=== PATIENT | male | born 1965 | race Caucasian/White ===

== ENCOUNTER → 2021-07-20 | Outpatient (CLI) | payer BC ==
[~2021-07-20] MED LIST: CYCL10TA19 PO; DEXAMETHASONE PRES.FREE 10 MG/ML VIAL. ONE; DICL75TA PO; IBUP-1060 PO; IOHEXOL 180 MG/ML 10 ML VIAL. ONE
--- NOTE | 2021-07-20 12:52 | PDOC1 ---
INITIAL PAIN CONSULT DATE OF SERVICE: DOS: DATE: 07/20/21 TIME: 12:46 CHIEF COMPLAINT: Chief Complaint: Low back and left lower extremity pain HISTORY OF PRESENT ILLNESS: 55-year-old male presents history of pain low back left lower extremity for about 6 months after he sneezed while he was at home and has significant pain in the low back and radiating to his left lower extremity now rating the posterior gluteus posterior thigh posterior calf into the foot and all the toes on the left side patient reports its not the result of any other specific injury or accident that he is aware of is getting worse with time walking standing changing positions exacerbates the pain better with sitting or laying down but does awaken her from sleep on occasion most nights he sleeps fairly well patient reports it generally does not affect his bowel or bladder control but does affect his go to walk is not use any assistive devices however ambulate patient reports he has had physical therapy in the past also does exercises at various times still staying as active as possible stretching strengthening doing heat applications none of which is decrease the pain significantly patient is been chairing diclofenac he tried prednisone pack as well as cyclobenzaprine none of which have decreased the pain is well patient rates disability rating 0-10 10 being the worst, at 10 with family home responsibilities and recreational activities 0 in other categories. Patient reports no loss of motor function but significant fatigability of the left lower extremity with ambulation walking standing and changing positions. Patient rates his pain as a 4 to scale 10 at its worst for an average 0 its least is a 4 today. PAST MEDICAL HISTORY: PMH: Hearing loss PREVIOUS SURGERIES: Past Surgical Hx: Repair right biceps tendon 2019 CURRENT MEDICATIONS: Current Meds: See chart FAMILY HISTORY: Family Hx: Cancers SOCIAL HISTORY: Social Hx: Patient takes alcohol about once a month, uses vapor cigarettes, is lives with his spouse lives locally in [facility] REVIEW OF SYSTEMS: ROS: Positive for those items mentioned in history of present illness, all systems are reviewed, otherwise negative ,and are complete full and well-documented on patient's chart. PHYSICAL EXAM: VS: Blood pressure is 138/92 pulse 90 respirations 18 temperature is 98.1 F height is 5 feet 6 inches weight is 184 pounds. PE: PHYSICAL EXAMINATION: GENERAL: The patient is awake, alert, oriented, appropriate, very pleasant in demeanor HEENT: Shows normocephalic, atraumatic. Extraocular movements are intact and symmetrical. Oral cavity: Mucous membranes moist and pink. Dentition is intact. NECK: Shows anterior throat supple without palpable lymphadenopathy noted. Swallow reflex symmetrical. CHEST: Shows normal on inspection. Breath sounds are clear bilaterally, no rales rhonchi or wheezes auscultated. HEART: Shows S1, S2 clear. No murmurs auscultated. ABDOMEN: Soft, nontender, nondistended. No palpable organomegaly is noted. No rebound or guarding demonstrated. BACK: Shows spine grossly in the midline. Normal-appearing cervical lordotic curvature. There is slightly increased thoracic kyphosis, some minor flattening of the lumbar lordotic curvature. Lumbar paraspinous muscles show symmetrical on inspection, on palpation shows some moderate tenderness diffusely throughout the upper, middle and lower distribution of the paraspinous muscles bilaterally and also into the lower thoracic paraspinous musculature, firm and tender, but without specific trigger points, without radiation of pain. The patient has good rotational motion of the lumbar spine, both laterally as well as extension and flexion without significant difficulty. No tenderness over the spinous processes, sacrum or sacroiliac regions. EXTREMITIES: Lower extremities show deep tendon reflexes 2+ in the patellar and tendo calcaneus tendons. Motor exam is 5 on a scale of 5 with right dorsiflexion, extension, quadriceps and hamstring flexion and 4/5 on the left. Peripheral pulses are 1 posterior tibial. No peripheral edema is noted bilaterally. Lower extremities are warm and dry to touch, equal in color and appearance. SKIN: Shows warm and dry, good turgor. No edema. No sores, rashes or bruising throughout. IMPRESSION: Impression: 55-year-old male with approximate 6-month history increasing pain low back left lower extremity radicular fashion following L5-S1 dermatomal distribution. Hearing loss Vapor cigarette use Plan: Options discussed with the patient including continued physical therapies interventional techniques as well as medication management. Patient like to pursue interventional techniques. We discussed a lumbar epidural steroid in jections description as well as anatomical models to describe the procedure. Risks were discussed including but not limited to: Bleeding, infection, possibility of epidural hematoma and subsequent neurological compromise, dural puncture, headaches, spinal cord and/or nerve damage, side effects of steroid medication, and poor results regarding pain control. Patient understands and wished to proceed. He will return to the clinic in approximately 2 weeks for follow-up, was counseled as to return appointment, activity level, and side effect to be aware of. Procedure is lumbar epidural steroid injection under local anesthetic using s terile prep and drape at the L5-S1 level using C-arm fluoroscopic guidance in both AP and lateral views medications injected is 20 mg dexamethasone +10mL preservative-free normal saline and 2 mL contrast- condition at discharge is stable patient tolerated procedure well had no complications. PATRICIA MCGRATH MD Jul 20, 2021 12:52
--- NOTE | 2021-07-20 12:53 | PDOC4 ---
Procedure Note: ICD 10 Code: ICD 10 Code: M54.17 M51.87 Procedure Note: Patient was consented for lumbar epidural steroid injection with fluoroscopic guidance. Risks were discussed including but not limited to: Bleeding, infection, possibility of epidural hematoma and subsequent neurological compromise, dural puncture, headaches, spinal cord and/or nerve damage, side effects of steroid medication, and poor results regarding pain control. Patient understands and wished to proceed. Procedure is lumbar epidural steroid injection under local anesthetic using sterile prep and drape at the L5-S1 level using C-arm fluoroscopic guidance in both AP and lateral views medications injected is 20 mg dexamethasone +10mL preservative-free normal saline and 2 mL contrast- condition at discharge is stable patient tolerated procedure well had no complications. PATRICIA MCGRATH MD Jul 20, 2021 12:53
== END | disposition home or self-care (01) ==
LOC: PNCL 09:53
PROVIDERS: ATTEND Anesthesiology
DX: M51.17 Intervertebral disc disorders with radiculopathy, lumbosacral region (principal); Z79.899 Other long term (current) drug therapy
CPT/HCPCS: 62323; J1100; Q9965

== ENCOUNTER → 2021-08-04 | Outpatient (CLI) | payer BC ==
[~2021-08-04] MED LIST changes: -DEXAMETHASONE PRES.FREE 10 MG/ML VIAL. ONE; -IOHEXOL 180 MG/ML 10 ML VIAL. ONE
--- NOTE | 2021-08-04 14:36 | PDOC ---
Progress Note - Pain Clinic Date of Service: DOS: DATE: 08/04/21 TIME: 14:34 Diagnosis: Dx: Lumbar radiculopathy with lumbar degenerative disc disease History or Present Illness: HPI: Telemedicine visit today with patient's identity verified with full name as well as full date of , total time spent 11 minutes, voice only 55-year-old male via telemedicine visit today with follow-up after lumbar epidural steroid injection July 20, 2021. Patient reports still significant pain in the low back and left lower extremity without any significant improvement patient reports increased fatigability and some weakness in the left leg as well over the last week or so patient reports still in the posterior gluteus posterior thigh posterior calf into the foot again worse with walking standing changing positions patient reports disturbing sleep and it is not improved significantly since his visit. Patient reports no bowel or bladder incontinence. We discussed options with the patient, and will order an MRI scan of the lumbar spine to better differentiate etiology for his left L5-S1 radiculopathy with increasing pain and weakness in the left leg. Patient will follow up as scheduled after MRI scan is completed. Physical Exam: PE: PATRICIA MCGRATH MD Aug 04, 2021 14:36
--- NOTE | 2021-08-04 15:10 | NUR ---
TELEHEALTH: Pt called to inquire about whether to schedule a follow up visit since his first lumbar epidural was ineffective and he continues to have worsening pain radiating down his left leg. Scheduled for a follow up evaluation with possible injection, and transferred to Dr. Puckett for further discussion of symptoms. N/O for MRI of lumbar spine. Prior authorization needed for MRI, request pending. Radiology Scheduling will call patient to schedule appointment.
== END | disposition home or self-care (01) ==
LOC: PNCL 13:45
PROVIDERS: ATTEND Anesthesiology
DX: M51.16 Intervertebral disc disorders with radiculopathy, lumbar region (principal); Z79.899 Other long term (current) drug therapy
CPT/HCPCS: 99212; G0463

== ENCOUNTER → 2021-08-11 | Outpatient (CLI) | payer BC ==
--- NOTE | 2021-08-11 09:53 | KCIC ---
EXAM: Lumbar spine MRI without contrast. HISTORY: Lumbosacral radiculopathy. TECHNIQUE: Multiplanar, multisequence magnetic resonance imaging of the lumbar spine was performed wi thout contrast. COMPARISON: None. FINDINGS: There is no significant listhesis. There is degenerative endplate remodeling and mild disc desiccation at multiple levels. There is disc space narrowing and Schmorl's node formation with assoc iated endplate signal changes at T11-T12. There is no suspicious osseous lesion. There is no acute or subacute fracture. The conus terminates at T12. 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 There is a T2 hyperintense lesion within the right posterior superior L5 vertebral body and pedicle, consistent with a benign atypical hemangioma. There is a 3.3 cm simple right renal cyst. Follow-up is not routinely performed for simple cysts. At T11-T12, there is a shallow left lateral recess to foraminal disc protrusion superimposed on endpl ate remodeling. There is mild narrowing of the left aspect of the central canal and left lateral rece ss. There is mild left foraminal stenosis. At T12-L1, there is no stenosis. At L1-L2, there is no stenosis. At L2-L3, there is a mild disc bulge and anterior predominant endplate remodeling. There is no stenos is. At L3-L4, there is a mild disc bulge and endplate remodeling. There is mild bilateral facet arthropat hy. There is no stenosis. At L4-L5, there is a left paracentral to lateral recess disc protrusion with 5 and minimal inferior e xtrusion superimposed on a disc bulge and endplate remodeling. There is mild bilateral facet arthropa thy. There is mild to moderate central canal stenosis and effacement of the left lateral recess with deviation of the traversing left L5 nerve root. At L5-S1, there is mild bilateral facet arthropathy. There is a suspected 9 mm left facet joint synov ial cyst along the lateral aspect of the facet joint. IMPRESSION: Multilevel degenerative change involving the lower thoracic and lumbar spine, described i n detail above. This is associated with mild left foraminal and central canal stenosis and narrowing of the left lateral recess at T12-L1 and mild to moderate central canal stenosis and effacement of th e left lateral recess with deviation of the traversing left L5 nerve root at L4-L5. Electronically signed by: Alisa De Los Santos MD (08/11/2021 9:50 AM) [id number]
== END | disposition home or self-care (01) ==
LOC: KCIC MRI 08:14
PROVIDERS: ATTEND Anesthesiology
DX: M47.26 Other spondylosis with radiculopathy, lumbar region (principal); M48.061 Spinal stenosis, lumbar region without neurogenic claudication; Z79.899 Other long term (current) drug therapy
CPT/HCPCS: 72148

== ENCOUNTER → 2021-08-25 | Outpatient (CLI) | payer BC ==
[~2021-08-25] MED LIST changes: +BUPIVACAINE MPF 0.25% 10 ML VIAL. ONE; +DEXAMETHASONE PRES.FREE 10 MG/ML VIAL. ONE; +IOHEXOL 180 MG/ML 10 ML VIAL. ONE
--- NOTE | 2021-08-25 10:10 | PDOC ---
Progress Note - Pain Clinic Date of Service: DOS: DATE: 08/25/21 TIME: 10:05 Diagnosis: Dx: Lumbar radiculopathy with lumbar degenerative disc disease History or Present Illness: HPI: 55-year-old male returns status post lumbar epidural steroid injection with no significant improvement in pain the low back and left lower patient reports still significant pain across in the left low back into the posterior gluteus lateral thigh anterior thigh medial thigh into the posterior calf on the left side we did do an MRI scan after his last visit, which we discussed with him, showing multilevel degenerative changes with L4-5 left paracentral to left lateral recess disc retrusion and superimposed disc bulge with mild to moderate central canal stenosis and effacement the left lateral recess with deviation of the traversing left L5 nerve root. Patient reports a still significant pain with walking standing change positions patient tried to do some running but had to stop after about 5 minutes secondary to the pain patient reports aching sharp in the back shooting in the left lower extremity radiating in the leg as well on and off in intensity but better with sitting or laying down generally not awaken from sleep at night patient reports he is beginning to gain weight as he not been able to exercise as much the pain is becoming much more noticeable in the left leg itself. Patient reports no bowel or bladder incontinence. Physical Exam: VS: Blood pressure is 115/84 pulse 105 respirations 18 temperature 98.3 F weight is 186 pounds. PE: PHYSICAL EXAMINATION: GENERAL: The patient is awake, alert, oriented, appropriate, very pleasant in demeanor HEENT: Shows normocephalic, atraumatic. Extraocular movements are intact and symmetrical. Patient wearing eyeglasses. Oral cavity: Mucous membranes moist and pink. Dentition is intact. NECK: Shows anterior throat supple without palpable lymphadenopathy noted. Swallow reflex symmetrical. CHEST: Shows normal on inspection. Breath sounds are clear bilaterally. HEART: Shows S1, S2 clear. No murmurs auscultated. ABDOMEN: Soft, nontender, nondistended. No palpable organomegaly is noted. BACK: Shows spine grossly in the midline. Normal-appearing cervical lordotic curvature. There is slightly increased thoracic kyphosis, some mild flattening of the lumbar lordotic curvature. Lumbar paraspinous muscles show symmetrical o n inspection, on palpation shows some moderate tenderness diffusely throughout the upper, middle and lower distribution of the paraspinous muscles, but without specific trigger points, without radiation of pain. The patient has good rotational motion of the lumbar spine, both laterally as well as extension and flexion without significant difficulty. EXTREMITIES: Lower extremities show deep tendon reflexes 2+ in the patellar and tendo calcaneus tendons. Motor exam is 5 on a scale of 5 with right dorsifle xion, extension, quadriceps and hamstring flexion and 4/5 on the left. Peripheral pulses are 1+ posterior tibial. No peripheral edema is noted bilaterally. Lower extremities are warm and dry. SKIN: Shows warm and dry, good turgor. No edema. No sores, rashes or bruising throughout. Procedure: Procedure: Options were discussed with the patient. Patient's old chart was reviewed his current medication regimen updated current review of systems updated today as well. We will proceed with a lumbar transforaminal injection at the L4-5 level on the left with fluoroscopic guidance and digital subtraction today. Risks were discussed including but not limited to: Bleeding, infection, possibility of epidural hematoma and subsequent neurological compromise, dural puncture, headaches, spinal cord and/or nerve damage, potential injection of vertebral artery at that level and permanent ischemic damage, side effects of steroid medication, and poor results regarding pain control. Patient understands and wished to proceed. Patient will return to the clinic in approximately 2 weeks for follow-up, was counseled as to return appointment, activity level, and side effects to be aware of. Medication Injected: Med Injected: Under sterile prep and drape patient was placed in prone position using C-arm fluoroscopic guidance to identify the L4-5 distribution oblique and slightly cephalad angled C arm. The left L4-5 target was identified and using lidocaine for anesthetizing the skin 22-gauge Katie pencil point needle was then used to enter the skin and into the subcutaneous tissues using direct C-arm fluoroscopic guidance to guide the needle into the transforaminal aspect of the left L4-5 vertebrae this was confirmed with lateral views showing the needle tip in the superior aspect of the paravertebral region. Aspiration was noted to be negative, -1.5 cc of contrast was then injected with good spread both medially into the epidural space as well as laterally along the nerve root without uptake and without distribution and uptake on digital subtraction. At this time, a solution containing 2 cc of 0.25% bupivacaine and 15 mg dexamethasone was then injected. Needle was withdrawn and sterile bandage was applied. Patient tolerated procedure well had no immediate complications Condition at Discharge: Condition at Discharge: Condition at discharge stable, the patient tolerated the procedure well and had no complications. PATRICIA MCGRATH MD Aug 25, 2021 10:10
== END | disposition home or self-care (01) ==
LOC: PNCL 08:46
PROVIDERS: ATTEND Anesthesiology
DX: M51.16 Intervertebral disc disorders with radiculopathy, lumbar region (principal); Z79.899 Other long term (current) drug therapy
CPT/HCPCS: 64483; J1100; J3490; Q9965